=== PATIENT | female | born 1995 | race Caucasian/White ===

== ENCOUNTER 2016-08-23 09:47 | Emergency (ER) | payer MEDICAID ==
[2016-08-23] MEDS ORDERED: NS 0.9% 1000 ML* 1,000 ML IV ONE (10:46)
--- NOTE | 2016-08-23 10:53 | ED ---
Headache - HPI Summary HPI Summary: 21 female presents with complaints of a headache that began Sunday08/19/16 after hitting her head against a wall. 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 During this fits mother states she goes "ballistic" and hits her head on objects. She has hit her head on objects 100's of times per mother. However mother/legal guardian is concerned due to patient stating she has blurred vision and complained of her left leg being weak/numb yesterday. Patient denies nausea, vomiting, confusion and epistaxis. She does admit to possibly losing consciousness for a second after hitting her head as she states she does not remember the event. She does have a developmental delay, Autism and psychiatric history. However mental status is not altered and she is of normal mentation per patient and mother. Mother believed her lithium dose that was recently increased was causing some of her symptoms and after speaking with psych she had the dose decreased yesterday. She also has been taking tylenol without much relief from headache. No other meds or complaints. Admits to having a small bump on the front of her head where she hit her head. Also states her headache is everywhere but mainly in front and throbs making her cry. - History Of Current Complaint Chief Complaint: EDHeadache Stated Complaint: AMS/HEADACHE/BLURRY VISION Time Seen by Provider: 08/23/16 10:18 Hx Obtained From: Patient, Family/Signal Operator - mother/legal gakusumdian Onset/Duration: Sudden Onset, Started days ago - 4 Initially Headache Was: Initial Pain Scale(0-10)= - 9, Moderate Currently Pain Is: Current Pain Scale(0-10)= - 9, Moderate Timing: Constant, Days Character: Throbbing, Typical Headache Location of Headache: Frontal, Parietal Radiates to: no radiation Aggravating Factor: Nothing Allevating Factors: Medication - tylenol gives her some relief, but not much Associated Signs And Symptoms: Visual Changes - blurred vision per patient - Allergies/Home Medications Allergies/Adverse Reactions: Allergies Allergy/AdvReac Type Severity Reaction Status Date / Time Cefaclor [From Ceclor] Allergy Rash Verified 08/23/16 10:16 Choline [From Tri Lipotropic] Allergy Hives Verified 08/23/16 10:16 Ephedrine [From Respirol] Allergy Agitation Verified 08/23/16 10:16 Inositol Allergy Hives Verified 08/23/16 10:16 [From Tri Lipotropic] Methionine Allergy Hives Verified 08/23/16 10:16 [From Tri Lipotropic] Olanzapine [From Zyprexa] Allergy Agitation Verified 08/23/16 10:16 Phenobarbital [From Respirol] Allergy Agitation Verified 08/23/16 10:16 Sertraline [From Zoloft] Allergy Agitation Verified 08/23/16 10:16 Theophylline [From Respirol] Allergy Agitation Verified 08/23/16 10:16 Valproic Acid [From Depakote] Allergy Rash Verified 08/23/16 10:16 Home Medications: Home Medications Acetaminophen TAB* [Tylenol TAB*] 325 mg PO Q4H PRN 08/23/16 [History Confirmed 08/23/16] [place] Carbonate ER (NF) 300 mg PO BEDTIME 08/23/16 [History Confirmed 08/23/16 ] PMH/Surg Hx/FS Hx/Imm Hx Endocrine/Hematology History: Reports: Other Endocrine/Hematological Disorders - agenisis of right kidney Sensory History: Reports: Hx Vision Problem Neurological History: Reports: Hx Developmental Delay, Other Neuro Impairments/ Disorders - ventricular hypertrophy Psychiatric History: Reports: Hx Autism, Other Psychiatric Issues/Disorders - TBI, cerebral palsy - Surgical History Surgery Procedure, Year, and Place: brain surgery as baby - Immunization History Immunizations Up to Date: Yes Infectious Disease History: No Infectious Disease History: Denies: Traveled Outside the [place] in Last 30 Days - Family History Known Family History: Positive: Unknown - adopted - Social History Alcohol Use: None Substance Use Type: Reports: None Smoking Status (MU): Never Smoked Tobacco Review of Systems Constitutional: Negative Positive: Blurred Vision ENT: Negative Cardiovascular: Negative Respiratory: Negative Gastrointestinal: Negative Musculoskeletal: Negative Skin: Negative Positive: Headache, Weakness - left leg All Other Systems Reviewed And Are Negative: Yes Physical Exam Triage Information Reviewed: Yes Vital Signs On Initial Exam: Initial Vitals Temp Pulse Resp BP Pulse Ox 100.2 F 122 20 137/87 98 08/23/16 09:53 08/23/16 09:53 08/23/16 09:53 08/23/16 09:53 08/23/16 09:53 temp was 97.1 when re-checked. Vital Signs Reviewed: Yes Appearance: Positive: Well-Appearing, No Pain Distress, Well-Nourished Skin: Positive: Warm, Skin Color Reflects Adequate Perfusion, Dry, Other - no ecchymosis or lacerations noted. Negative: Numb, Cyanosis @, Diaphoretic Head/Face: Positive: Normal Head/Face Inspection, Scalp - small quarter sized hematoma noted on frontal scalp, no crepitus, step off or ecchymosis. no open wounds or lacerations. rest of head exam normal. no racoon eyes or battles signs. no facial bone tenderness. Negative: TMJ Tenderness Eyes: Positive: Normal, EOMI - strabismus/exotropia noted of left eye, KARINA, Conjunctiva Clear ENT: Positive: Normal ENT inspection, Hearing grossly normal, Pharynx normal, TMs normal Neck: Positive: Supple, Nontender Respiratory/Lung Sounds: Positive: Clear to Auscultation, Breath Sounds Present. Negative: Rales, Rhonchi, Wheezes Cardiovascular: Positive: Normal, RRR, Pulses are Symmetrical in both Upper and Lower Extremities - 2+ all extremities. Negative: Murmur, Rub Abdomen Description: Positive: Nontender, Soft Bowel Sounds: Positive: Present Musculoskeletal: Positive: Normal, Strength/ROM Intact. Negative: Limited @, Pain @ Neurological: Positive: Normal, Sensory/Motor Intact - sensation intact all extremities, strength intact, normal neuro exam, Alert, Oriented to Person Place , Time, CN Intact II-III, Reflexes Intact, NV Bundle Intact Distally, Normal Gait - slow, Finger to Nose - normal, Facial Symmetry, Speech Normal. Negative : Facial Droop Psychiatric: Positive: Affect/Mood Appropriate AVPU Assessment: Alert - Keyshawn Coma Scale Best Eye Response: 4 - Spontaneous Best Motor Response: 6 - Obeys Commands Best Verbal Response: 5 - Oriented Coma Scale Total: 13 Diagnostics - Vital Signs Vital Signs Temp Pulse Resp BP Pulse Ox 08/23/16 10:10 97.1 F 122 20 137/87 97 08/23/16 09:53 100.2 F 122 20 137/87 98 - Laboratory Result Diagrams: 08/23/16 11:08 08/23/16 11:08 Lab Statement: Any lab studies that have been ordered have been reviewed, and results considered in the medical decision making process. - CT brain w/o CT Interpretation: No Acute Changes - NO EVIDENCE FOR ACUTE INTRACRANIAL ABNORMALITY. CT Interpretation Completed By: Radiologist Re-Evaluation - Re-Evaluation First Eval Re-Evaluation Time: 14:06 Change: Improved - had significant improvement after toradol Headache Course/Dx - Course Course Of Treatment: Ct brain obtained and negative. CBC CMP ordered to check kidney function and RBC. Given fluids, toradol for headache. Had significant relief. Labs and CT normal and unremarkable. Will be given pain management at home. No concern for any other emergent etiology. Educated on possible mild concussion. Fluids, rest and no physical activity. Follow up with PCP. Aware of worsening signs and symptoms to watch out for. - Diagnoses Differential Diagnosis/HQI/PQRI: Epidural Hematoma, Subdural Hematoma, Migraine , Tension Headache, Viral Syndrome Provider Diagnoses: Headache Discharge - Discharge Plan Condition: Stable Disposition: HOME Prescriptions: HYDROcodone/ACETAMIN 5-325 MG* [[place] 5-325 TAB*] 1 tab PO Q6H PRN #2 tab MDD 2 PRN Reason: Pain Ibuprofen TAB* [Advil TAB*] 400 mg PO Q6H PRN #30 tab PRN Reason: Headache Patient Education Materials: Tension Headache (ED) Referrals: Non Staff,Doctor [Primary Care Provider] - Additional Instructions: Take prescribed Ibuprofen every 6 hours for pain and inflammation, with food only as needed while headache persists. [place] for pain in between ibuprofen doses only as needed. Drink plenty of fluids and get plenty of rest. Follow up with PCP. If symptoms worsen or new symptoms develop as we discussed please seek medical attention promptly.
[2016-08-23 11:24] LABS: Hematocrit 44 % (35-47); Hemoglobin 14.3 g/dl (12.0-16.0); Mean Corpuscular HGB Conc 33 g/dl (31-36); Mean Corpuscular Hemoglobin 30 pg (27-31); Mean Corpuscular Volume 90 fL (80-97); Mean Platelet Volume 9 um3 (7.4-10.4); Red Blood Count 4.85 10^6/ul (4.0-5.4); Red Cell Distribution Width 13 % (10.5-15); White Blood Count 9.6 10^3/ul (3.5-10.8)
--- NOTE | 2016-08-23 11:29 | RAD ---
INDICATION: Head injury and headache. COMPARISON: There are no prior studies available for comparison. TECHNIQUE: Contiguous axial sections of the brain were obtained from the skull base to the vertex without contrast. FINDINGS: The ventricles, cisterns and sulci are within normal limits. No significant focal abnormality or mass effect is seen. There is no evidence for hemorrhage. No significant focal osseous abnormality is seen. The visualized portion of the paranasal sinuses and mastoid air cells appear clear. IMPRESSION: NO EVIDENCE FOR ACUTE INTRACRANIAL ABNORMALITY.
[2016-08-23 11:37] LABS: Albumin 4.7 g/dL (3.2-5.2); BUN/Creatinine Ratio 21.5 (8-20); Calcium 10.7 mg/dL (8.6-10.3); EGFR African American 96.1 (>60); EGFR Non-African American 74.7 (>60); Potassium 3.5 mmol/L (3.5-5.0); Total Bilirubin 0.5 mg/dL (0.2-1.0); Total Protein 7.7 g/dL (6.4-8.9)
[2016-08-23] MEDS ORDERED: Ketorolac INJ* 30 MG/ML 1 ML VIAL IV PUSH ONE (12:14)
[2016-08-23 13:43] LABS: Erythrocyte Sed Rate 13 mm/Hr (0-14)
[2016-08-23 14:20] VITALS: BP 138/87
== END 2016-08-23 14:20 | disposition home or self-care (01) ==
LOC: ED 09:47
DX: R51 Headache (principal); H53.8 Other visual disturbances; M62.81 Muscle weakness (generalized); F84.0 Autistic disorder; G80.9 Cerebral palsy, unspecified; Z88.8 Allergy status to other drugs, medicaments and biological substances
CPT/HCPCS: 36415; 70450; 80053; 85025; 85652; 96374; 99282; J1885

== ENCOUNTER → 2016-09-21 14:48 | Emergency (ER) | payer MEDICAID ==
[2016-09-21 15:40] LABS: Urine Bacteria Absent (Absent); Urine Bilirubin Negative (Negative); Urine Glucose Negative (Negative); Urine Nitrite Negative (Negative)
[2016-09-21 16:01] LABS: Benzodiazepine Urine Screen Presumptive Positive (None Detect)
[2016-09-21 16:22] VITALS: BP 141/90
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
--- NOTE | 2016-09-21 22:23 | ED ---
Riana Vazquez Alfonso, scribed for Ajay Arzate on 09/21/16 at 2223 . Progress - Progress Note Progress Note: This patient was signed out from Dr. Colorado, pending disposition, awaiting MHE. After the MHE, the patients condition is deemed stable by psych. She will be discharged to home by psych with Dx of behavioral problems. - Consult/PCP Time Called: 19:40 Course/Dx - Diagnoses Provider Diagnoses: Behavioral problems The documentation as recorded by the Riana paez Alfonso accurately reflects the service I personally performed and the decisions made by Carito savage Emmanuel.
== END ==
LOC: ED 14:48
DX: R45.851 Suicidal ideations (principal); R45.850 Homicidal ideations
CPT/HCPCS: 36415; 80307; 81003; 81015; 87086; 99283